=== PATIENT | female | born 1955 | race Caucasian/White ===

== ENCOUNTER 2019-11-07 10:09 | Inpatient (IN) | payer MEDICARE, OTHER ==
[2019-11-07] MEDS ORDERED: BIVALIRUDIN BOLUS 250 MG/50 ML IV ONE (11:16)
[2019-11-07] MEDS ORDERED: PRASUGREL 10 MG TAB ONE ×2 (11:17)
[2019-11-07] MEDS ORDERED: NITROGLYCERIN 1000MCG/10ML SYRINGE INTRACORON ONE (11:18)
[2019-11-07] MEDS ORDERED: BIVALIRUDIN 250 MG in SODIUM CHLORIDE 0.9% 50 ML IV ONE (11:19)
[2019-11-07] MEDS ORDERED: PRASUGREL 10 MG TAB PO ONE (11:21)
[2019-11-07] MEDS ORDERED: IV FLUID CONTINUATION 200 ML IV ONE (11:22)
[2019-11-07] MEDS ORDERED: IOPAMIDOL-370 125ML BTL INJ ONE (11:29)
[2019-11-07] MEDS ORDERED: NITROGLYCERIN SL TABS 0.4 MG TAB SUBLINGUAL PRN (11:35)
[2019-11-07] MEDS ORDERED: ATROPINE SULFATE 0.1 MG/ML 10ML SYRINGE IV PRN (11:35)
[2019-11-07] MEDS ORDERED: RX INFO: IV CONTRAST WAS GIVEN 1 EACH MISC MISCELLANE PRN (11:35)
[2019-11-07] MEDS ORDERED: MAG HYDROX/AL HYDROX/SIMETH 30 ML CUP PO PRN (11:35)
[2019-11-07] MEDS ORDERED: SODIUM CHLORIDE 0.9% 1,000 ML IV SCH (11:45)
--- NOTE | 2019-11-07 11:52 | PTCA ---
PERCUTANEOUSTRANS CORORONARY ANGIOGRAPHY DATE OF SERVICE: 11/07/2019 PERFORMING PHYSICIAN: Daniel Alex MD. PROCEDURE PERFORMED: Successful stenting of the mid left anterior descending artery using 2.5 x 23 mm Xience FUAD with an excellent angiographic results. INDICATION: This is a 64-year-old female patient with COPD who was admitted initially to [facility] with increasing in the shortness of breath and was diagnosed with COPD exacerbation, but she was ruled in for acute lhr-[id number]-ruasosshk myocardial infarction. She underwent an echocardiogram which showed wall motion abnormalities in the LAD distribution. Also the EKG showed ST changes in the anteroseptal leads. APPROACH: Right common femoral artery. COMPLICATION: None. LEVEL OF SEDATION: Moderate with sedation length of 20 minutes. PROCEDURE DESCRIPTION: Please refer to diagnostic heart catheterization was performed at [facility]. Anticoagulation was initiated using Angiomax with bolus and drip. The left main was engaged using XB3 LAD guide. I did wire the LAD using a whisper wire. I did direct stenting of the lesion using 2.5 x 23 mm Xience FUAD where the stent was positioned under fluoroscopy guidance and deployed under 12 atmospheres for 20 seconds. The following angiogram showed good angiographic results and the procedure was completed without any complication. POSTPROCEDURE MANAGEMENT: 1. Dual anti-platelet therapy. 2. Risk factor modifications. 3. Follow up with the patient. MMODL / IJN: [id number] /
[2019-11-07] MEDS: methylPREDNISolone SOD SUCCI 125 MG/2 ML VIAL IV SCH ×2 (12:00→18:30)
[2019-11-07] MEDS: IPRATROPIUM-ALBUTEROL 3 ML NEB INHALATION SCH ×4 (12:10→23:23)
[2019-11-07] MEDS ORDERED: FUROSEMIDE 10 MG/ML 4 ML VIAL IV STA (12:25)
[2019-11-07] MEDS: MORPHINE SULFATE 2 MG/ML SYRINGE IVP PRN (12:25)
[2019-11-07] MEDS ORDERED: hydrALAZINE HCL 20 MG/ML 1 ML VIAL IVP STA (12:25)
[2019-11-07] MEDS ORDERED: hydrALAZINE HCL 20 MG/ML 1 ML VIAL IVP PRN (12:58)
[2019-11-07] MEDS ORDERED: IPRATROPIUM-ALBUTEROL 3 ML NEB INHALATION PRN (12:59)
[2019-11-07] MEDS: ALPRAZolam 0.25 MG TAB PO PRN (18:29)
[2019-11-07] MEDS ORDERED: ZOLPIDEM 5 MG TAB PO PRN (21:00)
[2019-11-07] MEDS: METOPROLOL TARTRATE 25 MG TAB PO SCH (21:26)
[2019-11-07] MEDS: ATORVASTATIN 80 MG TAB PO SCH (21:26)
[2019-11-08] MEDS: methylPREDNISolone SOD SUCCI 125 MG/2 ML VIAL IV SCH ×5 (00:26→23:55)
[2019-11-08] MEDS: ALPRAZolam 0.25 MG TAB PO PRN ×4 (00:35→23:55)
[2019-11-08] MEDS: IPRATROPIUM-ALBUTEROL 3 ML NEB INHALATION SCH ×6 (05:17→23:27)
[2019-11-08 06:13] LABS: Glucose,Whole Blood 134 mg/dL (75-99)
[2019-11-08 06:28] LABS: Basophils % (A) 0 %; Eosinophils % (A) 0 %; HCT 46.2 % (34.0-46.0); HGB 14.9 gm/dL (11.4-16.0); Lymphocytes # (A) 0.8 k/uL (1.0-4.8); Lymphocytes % (A) 7 %; MCH 32.7 pg (25.0-35.0); MCHC 32.2 g/dL (31.0-37.0); MCV 101.6 fL (80.0-100.0); Mean Platelet Volume 6.9; Monocytes # (A) 0.4 k/uL (0-1.0); Monocytes % (A) 4 %; Neutrophils # (A) 9.2 k/uL (1.3-7.7); Neutrophils % (A) 88 %; Platelet Count 322 k/uL (150-450); RBC 4.55 m/uL (3.80-5.40); RDW 12.3 % (11.5-15.5); WBC 10.4 k/uL (3.8-10.6)
[2019-11-08 06:42] LABS: African American GFR (CKD) >90 (>60 ml/min/1.73 sqM); Anion Gap 7 mmol/L; Blood Urea Nitrogen 26 mg/dL (7-17); Calcium 9.3 mg/dL (8.4-10.2); Carbon Dioxide 24 mmol/L (22-30); Chloride 107 mmol/L (98-107); Glucose 128 mg/dL (74-99); Non-African American GFR(CKD) >90 (>60 ml/min/1.73 sqM); Potassium 4.3 mmol/L (3.5-5.1); Sodium 138 mmol/L (137-145)
[2019-11-08] MEDS: PANTOPRAZOLE 40 MG TABLET PO SCH (07:02)
[2019-11-08] MEDS: LOSARTAN 50 MG TAB PO SCH (08:17)
[2019-11-08] MEDS: NICOTINE 21MG/24HR PATCH TRANSDERM SCH (08:18)
[2019-11-08] MEDS: METOPROLOL TARTRATE 25 MG TAB PO SCH (08:18)
[2019-11-08] MEDS: PRASUGREL 10 MG TAB PO SCH (08:18)
[2019-11-08] MEDS ORDERED: ASPIRIN 325 MG TAB PO SCH (09:00)
[2019-11-08 11:31] LABS: Glucose,Whole Blood 129 mg/dL (75-99)
[2019-11-08] MEDS: MORPHINE SULFATE 2 MG/ML SYRINGE IVP PRN (15:42)
[2019-11-08 16:52] LABS: Glucose,Whole Blood 127 mg/dL (75-99)
[2019-11-08] MEDS: METOPROLOL TARTRATE 50 MG TAB PO SCH (20:42)
[2019-11-08] MEDS: ATORVASTATIN 80 MG TAB PO SCH (20:42)
[2019-11-08 20:44] LABS: Glucose,Whole Blood 161 mg/dL (75-99)
[2019-11-08] MEDS ORDERED: DOXYCYCLINE 100 MG CAP PO SCH (22:15)
--- NOTE | 2019-11-08 22:20 | P.HPIM ---
History of Present Illness H&P Date: 11/08/19 Chief Complaint: Chest pain Patient is 64-year-old female with a known history of COPD was initially transferred from [facility] to [facility] due to worsening shortness of breath /dyspnea. Patient was in the MICU due to respiratory distress and requiring 4 L of oxygen where nasal cannula. Chest x- ray done at [facility] showed minimal groundglass opacities. Repeat chest x-ray at [facility] showed COPD. Patient was tested negative for COVID 19 on 11/01/2019. Patient was treated with antibiotics in the form of azithromycin and ceftriaxone as well as IV steroids for acute COPD exacerbation. Patient was also found to have elevated troponin's and EKG suggestive of ischemic changes. 2-D echo Cardizem showed ejection fraction 45% with septal, apical hypokinesis. Patient underwent cardiac catheterization showed severe disease in the mid LAD with long tubular lesion. Patient was transferred to [facility] where she underwent PCI and successful stenting of mid LAD. Patient is currently lying in the bed comfortably. No complaints of chest pain. Still having shortness of breath. No fever no chills. Patient is being continued on IV steroids, breathing treatments and antibiotics. Continued with dual antiplatelet therapy and statins and metoprolol. Review of Systems Constitutional: Patient denies any fever or chills . No generalized weakness or weight loss. Abdomen: Patient denied nausea vomiting and diarrhea and abdominal pain. Cardiovascular: Patient denies any chest pain or short of breath no palpitations. Respiratory: Patient does have cough without sputum production and positive shortness of breath Neurologic: Patient denied any numbness or tingling headache. Musculoskeletal: Patient denies any complaints of joint swelling or deformity. Skin: Negative Psychiatric: Negative Endocrine: No heat or cold intolerance. No recent weight gain. Genitourinary: No dysuria or hematuria. All other 14 point ROS negative except the above Past Medical History Past Medical History: COPD History of Any Multi-Drug Resistant Organisms: None Reported Past Surgical History: No Surgical Hx Reported Past Anesthesia/Blood Transfusion Reactions: No Reported Reaction Past Psychological History: Anxiety, Depression Smoking Status: Former smoker Past Alcohol Use History: None Reported Past Drug Use History: None Reported - Past Family History Father Family Medical History: Cancer Mother Family Medical History: Dementia Medications and Allergies Home Medications Medication Instructions Recorded Confirmed Type Albuterol Sulfate [Proair Hfa] 2 puff INHALATION RT-Q6H PRN 11/07/19 11/07/19 History Aspirin EC [Ecotrin Low Dose] 81 mg PO DAILY 11/07/19 11/07/19 History Fluticasone Propion/Salmeterol 1 puff INHALATION RT-DAILY 11/07/19 11/07/19 History [Fluticasone-Salmeterol 500-50] Fluticasone/Salmeterol [Advair 1 puff INHALATION RT-BID 11/07/19 11/07/19 History 500-50 Diskus] Ipratropium-Albuterol Nebulize 3 ml INHALATION RT-QID PRN 11/07/19 11/07/19 History [Duoneb 0.5 mg-3 mg/3 ml Soln] LORazepam [Ativan] 0.5 mg PO TID PRN 11/07/19 11/07/19 History busPIRone HCL 10 mg PO BID 11/07/19 11/07/19 History hydrOXYzine HCL 10 mg PO BID 11/07/19 11/07/19 History Allergies Allergy/AdvReac Type Severity Reaction Status Date / Time No Known Drug Allergies Allergy Unknown Verified 11/07/19 16:45 Physical Exam Vitals: Vital Signs Temp Pulse Pulse Resp BP BP Pulse Ox 11/08/19 08:00 97.6 F 118 H 25 H 159/88 91 L 11/08/19 07:42 96 11/08/19 07:28 92 11/08/19 05:27 88 11/08/19 05:18 104 H 11/08/19 04:00 97.6 F 102 H 16 179/92 97 11/08/19 03:00 97.8 F 102 H 16 126/62 97 11/08/19 00:08 98 11/08/19 00:00 97.8 F 85 16 138/83 97 11/07/19 23:37 76 11/07/19 23:31 100 11/07/19 23:24 72 11/07/19 20:11 100 11/07/19 20:06 104 H 11/07/19 20:00 97.7 F 106 H 20 115/68 96 11/07/19 19:53 101 H 11/07/19 17:30 102 H 127/90 11/07/19 17:02 101 H 22 94/65 11/07/19 16:33 110 H 11/07/19 16:30 110 H 29 H 119/69 11/07/19 16:15 104 H 104 H 120/58 11/07/19 15:47 97 18 133/65 98 11/07/19 15:37 95 18 137/69 98 11/07/19 15:32 91 18 140/71 98 11/07/19 15:27 89 18 122/63 98 11/07/19 15:25 98.1 F 101 H 29 H 94/65 97 11/07/19 15:20 88 18 125/69 98 11/07/19 14:20 98 18 125/67 98 11/07/19 13:20 96 18 124/75 98 11/07/19 13:15 98 18 135/78 97 11/07/19 13:05 99 20 159/76 97 11/07/19 12:55 103 H 20 175/79 97 11/07/19 12:50 97 20 181/91 98 11/07/19 12:23 107 H 11/07/19 12:20 111 H 24 227/122 98 11/07/19 12:10 109 H 11/07/19 12:05 108 H 28 H 197/127 11/07/19 11:50 113 H 28 H 191/128 Intake and Output 11/07/19 11/08/19 11/08/19 22:59 06:59 14:59 Intake Total 225 Output Total 1999 Balance 225 -1999 Intake: Intake, IV Titration 225 Amount Sodium Chloride 0.9% 1, 225 000 ml @ 75 mls/hr IV . [id number] [facility] Rx#:[id number] Output: Urine 1999 Other: Voiding Method Indwelling Catheter Indwelling Catheter Indwelling Catheter Weight 59.8 kg 59.8 kg PHYSICAL EXAMINATION: Patient is lying in the bed comfortably, no acute distress, awake alert and oriented.. HEENT: Normocephalic. Neck is supple. Pupils reactive. Nostrils clear. Oral cavity is moist. Ears reveal no drainage. Neck reveals no JVD, carotid bruits, or thyromegaly. CHEST EXAMINATION: Trachea is central. Symmetrical expansion. Bibasilar diminished air entry and expiratory wheezing present. CARDIAC: Normal S1, S2 with no gallops. No murmurs ABDOMEN: Soft. Bowel sounds normal. No organomegaly. No abdominal bruits. Extremities: reveal no edema. No clubbing or cyanosis Neurologically awake, alert, oriented x3 with well-coordinated movements. No focal deficits noted Skin: No rash or skin lesions. Psychiatric: Coperative. Nonsuicidal. anxious. Musculoskeletal: No joint swelling or deformity. Normal range of motion. Results CBC & Chem 7: 11/08/19 05:27 11/08/19 05:27 Labs: Abnormal Lab Results - Last 24 Hours (Table) 11/08/19 11/08/19 11/08/19 Range/Units 05:27 05:27 06:12 Hct 46.2 H (34.0-46.0) % MCV 101.6 H (80.0-100.0) fL Neutrophils # 9.2 H (1.3-7.7) k/uL Lymphocytes # 0.8 L (1.0-4.8) k/uL BUN 26 H (7-17) mg/dL Creatinine 0.49 L (0.52-1.04) mg/dL Glucose 128 H (74-99) mg/dL POC Glucose (mg/dL) 134 H (75-99) mg/dL Thrombosis Risk Factor Assmnt - DVT/VTE Prophylaxis DVT/VTE Prophylaxis: Pharmacologic Prophylaxis ordered - Choose All That Apply Each Factor Represents 1 point: Abnormal pulmonary function (COPD) Each Risk Factor Represents 2 Points: Age 61-74 years Thrombosis Risk Factor Assessment Total Risk Factor Score: 3 Thrombosis Risk Factor Assessment Level: Moderate Risk Assessment and Plan Assessment: Acute non-ST elevated IA status post cardiac catheterization and stent placement to mid LAD Acute COPD exacerbation Suspected COVID 19 viral infection. Test was negative. Previous history of smoking Acute hypoxic respiratory failure requiring BiPAP. Currently on oxygen with another cannula. Uncontrolled Hypertension Anxiety/depression History of breast cancer status post bilateral ostectomy. DVT prophylaxis with heparin subcu Plan: Patient will be continued on telemetry monitoring. Continue with dual antiplatelet therapy, statins and beta blockers. Continue with IV steroids and breathing treatments and added antibiotics in the form of azithromycin. Cardiology is on board. Further recommendations based on the clinical course. Time with Patient: Greater than 30
[2019-11-08] MEDS: AZITHROMYCIN 500 MG TAB PO SCH (23:55)
[2019-11-09] MEDS ORDERED: methylPREDNISolone SOD SUCCI 125 MG/2 ML VIAL IV SCH
[2019-11-09] MEDS: HEPARIN SODIUM,PORCINE 5,000 UNIT/ML 1 ML VIAL SQ SCH ×4 (00:03→23:07)
[2019-11-09] MEDS: IPRATROPIUM-ALBUTEROL 3 ML NEB INHALATION SCH (04:48)
[2019-11-09 06:15] LABS: Glucose,Whole Blood 167 mg/dL (75-99)
[2019-11-09] MEDS: methylPREDNISolone SOD SUCCI 125 MG/2 ML VIAL IV SCH ×4 (06:29→23:07)
[2019-11-09] MEDS: PANTOPRAZOLE 40 MG TABLET PO SCH (06:30)
[2019-11-09 06:42] LABS: Basophils % (A) 0 %; Eosinophils # (A) 0.1 k/uL (0-0.7); Eosinophils % (A) 1 %; HCT 41.9 % (34.0-46.0); HGB 13.6 gm/dL (11.4-16.0); Lymphocytes # (A) 0.9 k/uL (1.0-4.8); Lymphocytes % (A) 5 %; MCH 32.8 pg (25.0-35.0); MCHC 32.5 g/dL (31.0-37.0); MCV 100.9 fL (80.0-100.0); Monocytes # (A) 0.8 k/uL (0-1.0); Monocytes % (A) 5 %; Neutrophils % (A) 88 %; Platelet Count 343 k/uL (150-450); RBC 4.15 m/uL (3.80-5.40); WBC 15.8 k/uL (3.8-10.6)
[2019-11-09 07:05] LABS: African American GFR (CKD) >90 (>60 ml/min/1.73 sqM); Anion Gap 4 mmol/L; Blood Urea Nitrogen 31 mg/dL (7-17); Calcium 9.4 mg/dL (8.4-10.2); Carbon Dioxide 28 mmol/L (22-30); Chloride 103 mmol/L (98-107); Glucose 141 mg/dL (74-99); Non-African American GFR(CKD) >90 (>60 ml/min/1.73 sqM); Potassium 4.6 mmol/L (3.5-5.1); Sodium 135 mmol/L (137-145)
--- NOTE | 2019-11-09 07:32 | XR ---
EXAMINATION TYPE: XR chest 1V DATE OF EXAM: 11/09/2019 COMPARISON: NONE HISTORY: Dyspnea TECHNIQUE: Single frontal view of the chest is obtained. FINDINGS: There is pulmonary hyperinflation and biapical lucency with tapering of pulmonary vasculat ure on the basis of COPD. Surgical axillary clips are seen bilaterally. Symmetric rounded densities a t the lung bases may relate to nipple shadows, however with axillary clips mastectomy is possible. At tention on follow-up exams. No focal consolidation, pleural effusion or pneumothorax. Cardiomediastin al silhouette is nonenlarged. No acute osseous process. IMPRESSION: 1. Extensive emphysematous changes of the lungs. No focal consolidation. 2. Rounded densities at the lung bases may represent nipple shadows however this patient has had mast ectomy as there are axillary clips bilaterally CT thorax with be recommended to evaluate for pulmonar y nodule. Otherwise chest x-ray with nipple markers is recommended on the follow-up.
[2019-11-09] MEDS: ALBUTEROL HFA INHALER INHALATION SCH ×4 (08:04→19:34)
[2019-11-09] MEDS: TIOTROPIUM 18 MCG/PUFF INHALER INHALATION SCH (08:05)
[2019-11-09] MEDS: METOPROLOL TARTRATE 50 MG TAB PO SCH ×2 (08:44→20:19)
[2019-11-09] MEDS: ALPRAZolam 0.25 MG TAB PO PRN ×3 (08:44→20:19)
[2019-11-09] MEDS: LOSARTAN 50 MG TAB PO SCH (08:44)
[2019-11-09] MEDS: ASPIRIN 81 MG PO SCH (08:44)
[2019-11-09] MEDS: PRASUGREL 10 MG TAB PO SCH (08:44)
[2019-11-09] MEDS: NICOTINE 21MG/24HR PATCH TRANSDERM SCH (08:45)
--- NOTE | 2019-11-09 11:08 | CDI ---
Documentation Clarification Form Date: 11/09/2019 11:00:39 AM From: Rosina RobleroFloresBRANDY rosa, CCDS Admit Date: 11/07/2019 10:52:00 AM Patient Name: Brooklyn Salgado Visit Number: [id number] Discharge Date: ATTENTION: The Clinical Documentation Specialists (CDI) and [facility] Coding Staff appreciate your assistance in clarifying documentation. Please respond to the clarification below the line at the bottom and electronically sign. The CDI & [facility] Coding staff will review the response and follow-up if needed. Please note: Queries are made part of the Legal Health Record. If you have any questions, please contact the author of this message via ITS. Dr. Adonay Marcelo: The patient presented on 11/06 via transfer from [facility] for a PTCA with successful stent to the mid LAD after a heart catheterization & diagnosed with NSTEMI. Per the History & Physical on 11/07, also diagnosed with "uncontrolled hypertension" nos. History/Risk Factors: COPD, Former smoker, Bilateral mastectomy for breast Cancer. Clinical Indicators: Presented initially to [facility] with SOB, diagnosed with acute exacerbation of COPD, transferred to [facility], tested negative for COVID-19, diagnosed with CAD via heart catheterization, transferred to [facility] on 11/06 for intervention. BP on 11/06: 191/128, 197/127, 227/122, 181/91, 175/79, 122/63. On 11/08: 158/85, 169/81 Treatment: To r and d lab technician on admission 11/06 for PCI of LAD. IV fluid rate 75, INH Albuterol, IV Solumedrol, IV Lasix, IV Apresoline, IV Morphine. In your professional opinion, can you please clarify the type of hypertension: Hypertensive Emergency Hypertensive Urgency Other type of Hypertension Other, please specify Unable to determine (Last Revision: October 2017) Hypertensive Emergency MTDD
[2019-11-09 11:42] LABS: Glucose,Whole Blood 131 mg/dL (75-99)
[2019-11-09] MEDS: INSULIN ASPART (NovoLOG) 100 UNIT/ML VIAL SQ SCH ×3 (12:07→20:33)
--- NOTE | 2019-11-09 12:44 | P.PN ---
Subjective Progress Note Date: 11/08/19 This is a dictation for the date of service 11/08/2019 This is a 64-year-old female with history of COPD who initially was transferred from [facility] to [facility] because of symptoms of progressively worsening shortness of breath, she ruled in for non-Q-wave myocardial infarction, underwent a cardiac catheterization which revealed severe disease in the mid LAD and hence the patient was transferred here where she underwent angioplasty and stenting of that vessel. Patient was seen and examined this morning, hemodynamically stable but quite short of breath and quite wheezy. Blood pressure 160/80 with a heart rate of 118. 91% on 3 L of oxygen. White blood cell count 10.4, hemoglobin 14.9, platelet count 322. Sodium 138, potassium 4.3, BUN 26, creatinine 0.4. Objective - Vital Signs Vital signs: Vital Signs Temp 97.8 F 11/09/19 08:40 Pulse 72 11/09/19 12:00 Resp 18 11/09/19 12:00 BP 140/93 11/09/19 12:00 Pulse Ox 94 L 11/09/19 12:00 Intake & Output 11/08/19 11/09/19 11/09/19 18:59 06:59 18:59 Intake Total 480 360 240 Output Total 350 820 200 Balance 130 -460 40 Weight 59.8 kg 44.5 kg Intake: Oral 480 360 240 Output: Urine 350 400 200 Post Void Residual 420 Other: Voiding Method Indwelling Catheter Bedside Commode Bedside Commode # Voids 1 # Bowel Movements 1 - Exam PHYSICAL EXAMINATION: GENERAL: 64-year-old female in no acute distress at the time of my examination HEENT: Head is atraumatic, normocephalic. Pupils equal, round. Sclera anicteric. Conjunctiva are clear. Mucous membranes of the mouth are moist. Neck is supple. There is no elevated jugular venous pressure. No carotid bruit is heard. HEART EXAMINATION: Heart S1, S2 normal. No murmur or gallop heard. CHEST EXAMINATION: Lungs reveal decrease in air exchange with wheezing throughout ABDOMEN: Soft, nontender. Bowel sounds are heard. No organomegaly noted. EXTREMITIES: 2+ peripheral pulses with no evidence of peripheral edema and no calf tenderness noted. Right groin is soft, no evidence of any hematoma. NEUROLOGIC patient is awake, alert and oriented X3 . - Labs CBC & Chem 7: 11/09/19 06:02 11/09/19 06:02 Labs: Abnormal Lab Results - Last 24 Hours (Table) 11/08/19 11/08/19 11/09/19 Range/Units 16:50 20:43 06:02 WBC 15.8 H (3.8-10.6) k/uL MCV 100.9 H (80.0-100.0) fL Neutrophils # 14.0 H (1.3-7.7) k/uL Lymphocytes # 0.9 L (1.0-4.8) k/uL Sodium (137-145) mmol/L BUN (7-17) mg/dL Glucose (74-99) mg/dL POC Glucose (mg/dL) 127 H 161 H (75-99) mg/dL 11/09/19 11/09/19 11/09/19 Range/Units 06:02 06:13 11:40 WBC (3.8-10.6) k/uL MCV (80.0-100.0) fL Neutrophils # (1.3-7.7) k/uL Lymphocytes # (1.0-4.8) k/uL Sodium 135 L (137-145) mmol/L BUN 31 H (7-17) mg/dL Glucose 141 H (74-99) mg/dL POC Glucose (mg/dL) 167 H 131 H (75-99) mg/dL Assessment and Plan Plan: Assessment and plan #1 non-ST elevation myocardial infarction, status post angioplasty and stenting of the LAD #2 moderate to severe COPD #3 prior history of smoking #4 acute respiratory failure requiring BiPAP #5 uncontrolled hypertension #6 history of breast cancer #7 hyperlipidemia Plan We will obtain an echocardiogram with Doppler study, continue dual antiplatelet therapy along with the patient's other medications. From our perspective she may be able to be discharged once she is cleared from a pulmonary perspective. DNP note has been reviewed, I agree with a documented findings and plan of care. Patient was seen and examined.
--- NOTE | 2019-11-09 12:45 | P.PN ---
Subjective Progress Note Date: 11/09/19 This is a dictation for the date of service 11/08/2019 This is a 64-year-old female with history of COPD who initially was transferred from [facility] to [facility] because of symptoms of progressively worsening shortness of breath, she ruled in for non-Q-wave myocardial infarction, underwent a cardiac catheterization which revealed severe disease in the mid LAD and hence the patient was transferred here where she underwent angioplasty and stenting of that vessel. Patient was seen and examined this morning, hemodynamically stable but quite short of breath and quite wheezy. Blood pressure 160/80 with a heart rate of 118. 91% on 3 L of oxygen. White blood cell count 10.4, hemoglobin 14.9, platelet count 322. Sodium 138, potassium 4.3, BUN 26, creatinine 0.4. 11/09/19 Patient seen and examined this morning, breathing overall is significantly improved and she is wheezing much last. She denies any chest discomfort and hemodynamically he is stable. Echo remains pending. Objective - Vital Signs Vital signs: Vital Signs Temp 97.8 F 11/09/19 08:40 Pulse 72 11/09/19 12:00 Resp 18 11/09/19 12:00 BP 140/93 11/09/19 12:00 Pulse Ox 94 L 11/09/19 12:00 Intake & Output 11/08/19 11/09/19 11/09/19 18:59 06:59 18:59 Intake Total 480 360 240 Output Total 350 820 200 Balance 130 -460 40 Weight 59.8 kg 44.5 kg Intake: Oral 480 360 240 Output: Urine 350 400 200 Post Void Residual 420 Other: Voiding Method Indwelling Catheter Bedside Commode Bedside Commode # Voids 1 # Bowel Movements 1 - Exam PHYSICAL EXAMINATION: GENERAL: 64-year-old female in no acute distress at the time of my examination HEENT: Head is atraumatic, normocephalic. Pupils equal, round. Sclera anicter ic. Conjunctiva are clear. Mucous membranes of the mouth are moist. Neck is supple. There is no elevated jugular venous pressure. No carotid bruit is heard. HEART EXAMINATION: Heart S1, S2 normal. No murmur or gallop heard. CHEST EXAMINATION: Lungs improvement in air exchange with less wheezing ABDOMEN: Soft, nontender. Bowel sounds are heard. No organomegaly noted. EXTREMITIES: 2+ peripheral pulses with no evidence of peripheral edema and no calf tenderness noted. Right groin is soft, no evidence of any hematoma. NEUROLOGIC patient is awake, alert and oriented X3 . - Labs CBC & Chem 7: 11/09/19 06:02 11/09/19 06:02 Labs: Abnormal Lab Results - Last 24 Hours (Table) 11/08/19 11/08/19 11/09/19 Range/Units 16:50 20:43 06:02 WBC 15.8 H (3.8-10.6) k/uL MCV 100.9 H (80.0-100.0) fL Neutrophils # 14.0 H (1.3-7.7) k/uL Lymphocytes # 0.9 L (1.0-4.8) k/uL Sodium (137-145) mmol/L BUN (7-17) mg/dL Glucose (74-99) mg/dL POC Glucose (mg/dL) 127 H 161 H (75-99) mg/dL 11/09/19 11/09/19 11/09/19 Range/Units 06:02 06:13 11:40 WBC (3.8-10.6) k/uL MCV (80.0-100.0) fL Neutrophils # (1.3-7.7) k/uL Lymphocytes # (1.0-4.8) k/uL Sodium 135 L (137-145) mmol/L BUN 31 H (7-17) mg/dL Glucose 141 H (74-99) mg/dL POC Glucose (mg/dL) 167 H 131 H (75-99) mg/dL Assessment and Plan Plan: Assessment and plan #1 non-ST elevation myocardial infarction, status post angioplasty and stenting of the LAD #2 moderate to severe COPD #3 prior history of smoking #4 acute respiratory failure requiring BiPAP #5 uncontrolled hypertension #6 history of breast cancer #7 hyperlipidemia Plan We will review the echocardiogram with Doppler study, continue dual antiplatelet therapy along with the patient's other medications. From our perspective she may be able to be discharged once she is cleared from a pulmonary perspective. DNP note has been reviewed, I agree with a documented findings and plan of care. Patient was seen and examined.
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
[2019-11-09 16:47] LABS: Glucose,Whole Blood 129 mg/dL (75-99)
[2019-11-09] MEDS: SYMBICORT 160-4.5 MCG INHALER INHALATION SCH (19:35)
[2019-11-09] MEDS: ATORVASTATIN 80 MG TAB PO SCH (20:19)
[2019-11-09] MEDS: AZITHROMYCIN 500 MG TAB PO SCH (20:19)
[2019-11-09 20:28] LABS: Glucose,Whole Blood 147 mg/dL (75-99)
[2019-11-10] MEDS: ALBUTEROL HFA INHALER INHALATION SCH ×6 (00:31→19:23)
[2019-11-10] MEDS: ALPRAZolam 0.25 MG TAB PO PRN ×3 (05:58→20:29)
[2019-11-10] MEDS: methylPREDNISolone SOD SUCCI 125 MG/2 ML VIAL IV SCH ×3 (05:58→17:19)
[2019-11-10] MEDS: PANTOPRAZOLE 40 MG TABLET PO SCH (05:59)
[2019-11-10 06:33] LABS: Glucose,Whole Blood 127 mg/dL (75-99)
[2019-11-10] MEDS: INSULIN ASPART (NovoLOG) 100 UNIT/ML VIAL SQ SCH ×4 (06:35→20:29)
[2019-11-10] MEDS: SYMBICORT 160-4.5 MCG INHALER INHALATION SCH ×2 (08:03→19:23)
[2019-11-10] MEDS: TIOTROPIUM 18 MCG/PUFF INHALER INHALATION SCH (08:03)
[2019-11-10] MEDS: HEPARIN SODIUM,PORCINE 5,000 UNIT/ML 1 ML VIAL SQ SCH ×2 (08:16→17:20)
[2019-11-10] MEDS: PRASUGREL 10 MG TAB PO SCH (08:16)
[2019-11-10] MEDS: METOPROLOL TARTRATE 50 MG TAB PO SCH ×2 (08:16→20:29)
[2019-11-10] MEDS: LOSARTAN 50 MG TAB PO SCH (08:16)
[2019-11-10] MEDS: ASPIRIN 81 MG PO SCH (08:16)
[2019-11-10] MEDS: NICOTINE 21MG/24HR PATCH TRANSDERM SCH (08:16)
--- NOTE | 2019-11-10 10:21 | PN ---
PROGRESS NOTE Mrs. Salgado is a 64-year-old female with history of chronic obstructive lung disease, who presented with non ST-segment elevation myocardial infarction, underwent stenting of her LAD. She is feeling better today. Her breathing is better. She denies any dizziness or palpitation. She was evaluated by Dr. Adamson yesterday. She continues to be on aspirin once a day, Lipitor 80 mg daily, losartan 50 mg daily, metoprolol tartrate 50 mg twice a day, nicotine patch, and Effient 10 mg daily. PHYSICAL EXAMINATION: Blood pressure 111/70 with a heart rate in 90s. LUNGS: With decreased air exchange, no wheezes. HEART: Regular rate and rhythm, S1, S2. No S3. No rub. ABDOMEN: Soft, nontender. EXTREMITIES: No edema. IMPRESSION: 1. Status post non ST-segment elevation myocardial infarction with stenting of the LAD. 2. Exacerbation of chronic obstructive pulmonary disease. 3. Prior history of smoking. 4. Hypertension. 5. Hyperlipidemia. RECOMMENDATION: Patient is stable from the cardiac standpoint. I will expect she should be able to be discharged home soon and follow up as an outpatient with Dr. Alex in one week. MMODL / IJN: [id number] /
[2019-11-10 11:51] LABS: Glucose,Whole Blood 114 mg/dL (75-99)
--- NOTE | 2019-11-10 11:54 | ECHOF ---
Referral Reason:nstemi MEASUREMENTS -------- HEIGHT: 165.1 cm WEIGHT: 44.5 kg BP: RVIDd: 2.8 cm (< 3.3) IVSd: 0.8 cm (0.6 - 1.1) LVIDd: 2.9 cm (3.9 - 5.3) LVPWd: 1.1 cm (0.6 - 1.1) IVSs: 1.0 cm LVIDs: 2.2 cm LVPWs: 1.0 cm MV E Rocco: 0.54 m/s MV DecT: 165 ms MV A Rocco: 0.75 m/s MV E/A Ratio: 0.71 AR PHT: 314 ms RAP: 5.00 mmHg RVSP: 16.77 mmHg FINDINGS -------- Sinus rhythm. This was a technically difficult study with suboptimal views. The left ventricular size is normal. Left ventricular wall thickness is normal. Overall left vent ricular systolic function is low-normal with, an EF between 50 - 55 %. The right ventricle is normal in size. The left atrial size is normal. The right atrial size is normal. Lumason used The aortic valve was not well visualized. The aortic valve is trileaflet and appears structurally n ormal. Trace amount of aortic regurgitation. The mitral valve was not well visualized. There is trace mitral regurgitation. The tricuspid valve was not well visualized. Trace tricuspid regurgitation present. Right ventric ular systolic pressure is normal at < 35 mmHg. The pulmonic valve was not well visualized. The aortic root size is normal. IVC Not well visulized. There is no pericardial effusion. CONCLUSIONS -------- 1. Sinus rhythm. 2. This was a technically difficult study with suboptimal views. 3. The left ventricular size is normal. 4. Left ventricular wall thickness is normal. 5. Overall left ventricular systolic function is low-normal with, an EF between 50 - 55 %. 6. The right ventricle is normal in size. 7. The left atrial size is normal. 8. The right atrial size is normal. 9. Lumason used 10. The aortic valve was not well visualized. 11. The aortic valve is trileaflet and appears structurally normal. 12. Trace amount of aortic regurgitation. 13. The mitral valve was not well visualized. 14. There is trace mitral regurgitation. 15. The tricuspid valve was not well visualized. 16. Trace tricuspid regurgitation present. 17. Right ventricular systolic pressure is normal at < 35 mmHg. 18. The pulmonic valve was not well visualized. 19. The aortic root size is normal. 20. IVC Not well visulized. 21. There is no pericardial effusion. PHARMACY BILLING ADJUDICATOR: Earlene Meredith RDCS
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
[2019-11-10] MEDS: TAMSULOSIN 0.4 MG CAP.ER.24H PO SCH (14:00)
--- NOTE | 2019-11-10 14:22 | P.PN ---
Subjective Progress Note Date: 11/10/19 Principal diagnosis: Patient is 64-year-old female with a known history of COPD was initially transferred from [facility] to [facility] due to worsening shortness of breath /dyspnea. Patient was in the MICU due to respiratory distress and requiring 4 L of oxygen where nasal cannula. Chest x- ray done at [facility] showed minimal groundglass opacities. Repeat chest x-ray at [facility] showed COPD. Patient was tested negative for COVID 19 on 11/01/2019. Patient was treated with antibiotics in the form of azithromycin and ceftriaxone as well as IV steroids for acute COPD exacerbation. Patient was also found to have elevated troponin's and EKG suggestive of ischemic changes. 2-D echo Cardizem showed ejection fraction 45% with septal, apical hypokinesis. Patient underwent cardiac catheterization showed severe disease in the mid LAD with long tubular lesion. Patient was transferred to [facility] where she underwent PCI and successful stenting of mid LAD. Patient is currently lying in the bed comfortably. No complaints of chest pain. Still having shortness of breath. No fever no chills. Patient is being continued on IV steroids, breathing treatments and antibiotics. Continued with dual antiplatelet therapy and statins and metoprolol. 11/10/2019 Patient is seen and evaluated and follow-up in currently on 3 L of oxygen via nasal cannula. She states her breathing has improved and normally wears 3 L at home. Pulmonary following. Patient was wearing the BiPAP last night. Early no reports of chest pain, worsening shortness of breath, or palpitations. Patient is afebrile. No reports of nausea or vomiting and patient is tolerating diet. Attempts to remove the Hartman catheter done yesterday and patient was retaining and the Hartman catheter was replaced. Patient will be initiated on Flomax and nursing staff instructed to remove the Hartman and monitor for retention. If this continues urology consult will be placed. Patient continues on oral Zithromax along with IV ceftriaxone and will continue at this time. Patient remains on IV steroids and wheezing has slightly improved. Cardiology recommending outpatient follow-up once discharged. Objective - Vital Signs Vital signs: Vital Signs Temp 97.5 F L 11/10/19 08:00 Pulse 94 11/10/19 08:00 Resp 18 11/10/19 08:00 BP 111/72 11/10/19 08:00 Pulse Ox 93 L 11/10/19 08:00 Intake & Output 11/09/19 11/10/19 11/10/19 18:59 06:59 18:59 Intake Total 530 190 Output Total 200 425 250 Balance 330 -235 -250 Weight 43 kg Intake: IV 10 Invasive Line 3 10 Intake, IV Titration 50 Amount cefTRIAXone 1 gm In 50 Sodium Chloride 0.9% 50 ml @ 100 mls/hr IVPB Q24HR [facility] Rx#:[id number] Oral 480 180 Output: Urine 200 425 250 Uretheral (Hartmna) 250 250 Other: Voiding Method Bedside Commode Indwelling Catheter - Exam Patient is sitting up in the bed comfortably, no acute distress, awake alert and oriented.. HEENT: Normocephalic. Neck is supple. Pupils reactive. Nostrils clear. Oral cavity is moist. Ears reveal no drainage. Neck reveals no JVD, carotid bruits, or thyromegaly. CHEST EXAMINATION: Trachea is central. Symmetrical expansion. Bibasilar diminished air entry and mild expiratory wheezing present. Improved from CARDIAC: Normal S1, S2 with no gallops. No murmurs ABDOMEN: Soft. Bowel sounds normal. No organomegaly. No abdominal bruits. Extremities: reveal no edema. No clubbing or cyanosis Neurologically awake, alert, oriented x3 with well-coordinated movements. No focal deficits noted Skin: No rash or skin lesions. Psychiatric: Cooperative. Non-suicidal. Musculoskeletal: No joint swelling or deformity. Normal range of motion. - Labs CBC & Chem 7: 11/09/19 06:02 11/09/19 06:02 Labs: Abnormal Lab Results - Last 24 Hours (Table) 11/09/19 11/09/19 11/09/19 Range/Units 11:40 16:46 20:24 POC Glucose (mg/dL) 131 H 129 H 147 H (75-99) mg/dL 11/10/19 Range/Units 06:31 POC Glucose (mg/dL) 127 H (75-99) mg/dL Assessment and Plan Assessment: Acute non-ST elevated TN status post cardiac catheterization and stent placement to mid LAD Acute COPD exacerbation Suspected COVID 19 viral infection. Test was negative. Covid 19 ruled out Previous history of smoking Acute hypoxic respiratory failure requiring BiPAP. Currently on oxygen with nasal cannula. Hypertension, patient remains on Cozaar and Lopressor and will continue at this time Anxiety/depression History of breast cancer status post bilateral mastectomy. DVT prophylaxis with heparin subcu Plan: Patient will be continued on telemetry monitoring. Continue with dual antiplatelet therapy, statins and beta blockers. Continue with IV steroids and breathing treatments and added antibiotics in the form of azithromycin. Patient will transition to oral steroids once discharged. Patient continues to have an indwelling Hartman catheter which will be discontinued and monitor closely for r etention as last night attempt she was unable to void and Hartman catheter was reinitiated. Flomax started. Cardiology following recommending outpatient follow-up with Dr. Alex in the office. Pulmonary following. Further recommendations based on the clinical course. Possible discharge in 24-48 ho urs.
[2019-11-10 16:40] LABS: Glucose,Whole Blood 148 mg/dL (75-99)
[2019-11-10 19:48] LABS: Glucose,Whole Blood 135 mg/dL (75-99)
[2019-11-10] MEDS: ATORVASTATIN 80 MG TAB PO SCH (20:28)
[2019-11-10] MEDS: AZITHROMYCIN 500 MG TAB PO SCH (20:28)
--- NOTE | 2019-11-10 22:37 | P.PN ---
Subjective Progress Note Date: 11/09/19 Principal diagnosis: Acute non-ST elevated MS status post and placement Acute COPD exacerbation Patient is 64-year-old female with a known history of COPD was initially transferred from [facility] to [facility] due to worsening shortness of breath /dyspnea. Patient was in the MICU due to respiratory distress and requiring 4 L of oxygen where nasal cannula. Chest x- ray done at [facility] showed minimal groundglass opacities. Repeat chest x-ray at [facility] showed COPD. Patient was tested negative for COVID 19 on 11/01/2019. Patient was treated with antibiotics in the form of azithromycin and ceftriaxone as well as IV steroids for acute COPD exacerbation. Patient was also found to have elevated troponin's and EKG suggestive of ischemic changes. 2-D echo Cardizem showed ejection fraction 45% with septal, apical hypokinesis. Patient underwent cardiac catheterization showed severe disease in the mid LAD with long tubular lesion. Patient was transferred to [facility] where she underwent PCI and successful stenting of mid LAD. Patient is currently lying in the bed comfortably. No complaints of chest pain. Still having shortness of breath. No fever no chills. Patient is being continued on IV steroids, breathing treatments and antibiotics. Continued with dual antiplatelet therapy and statins and metoprolol. 11/09/2019 Patient is currently sitting on the bed appears to be in mild distress. Patient was placed on BiPAP machine. No complaints of chest pain. Patient has been afebrile. Repeat chest x-ray showed extensive emphysematous changes. No focal consolidation noted. 2-D echocardiogram is pending. Cardiology and pulmonary is following. No nausea vomiting or abdominal pain or diarrhea. Blood pressure is controlled. Current medications reviewed. Objective - Vital Signs Vital signs: Vital Signs Temp 98.4 F 11/09/19 19:50 Pulse 105 H 11/09/19 19:50 Resp 22 11/09/19 19:51 BP 147/95 11/09/19 19:50 Pulse Ox 92 L 11/09/19 19:50 Intake & Output 11/09/19 11/09/19 11/10/19 06:59 18:59 06:59 Intake Total 360 530 120 Output Total 820 200 Balance -460 330 120 Weight 44.5 kg Intake: Intake, IV Titration 50 Amount cefTRIAXone 1 gm In 50 Sodium Chloride 0.9% 50 ml @ 100 mls/hr IVPB Q24HR [facility] Rx#:[id number] Oral 360 480 120 Output: Urine 400 200 Post Void Residual 420 Other: Voiding Method Bedside Commode Bedside Commode Indwelling Catheter # Voids 1 # Bowel Movements 1 - Exam PHYSICAL EXAMINATION: Patient is lying in the bed comfortably, no acute distress, awake alert and oriented.. HEENT: Normocephalic. Neck is supple. Pupils reactive. Nostrils clear. Oral cavity is moist. Ears reveal no drainage. Neck reveals no JVD, carotid bruits, or thyromegaly. CHEST EXAMINATION: Trachea is central. Symmetrical expansion. Bibasilar diminished air entry and expiratory wheezing present. CARDIAC: Normal S1, S2 with no gallops. No murmurs ABDOMEN: Soft. Bowel sounds normal. No organomegaly. No abdominal bruits. Extremities: reveal no edema. No clubbing or cyanosis Neurologically awake, alert, oriented x3 with well-coordinated movements. No focal deficits noted Skin: No rash or skin lesions. Psychiatric: Coperative. Nonsuicidal. anxious. Musculoskeletal: No joint swelling or deformity. Normal range of motion. - Labs CBC & Chem 7: 11/09/19 06:02 11/09/19 06:02 Labs: Abnormal Lab Results - Last 24 Hours (Table) 11/09/19 11/09/19 11/09/19 Range/Units 06:02 06:02 06:13 WBC 15.8 H (3.8-10.6) k/uL MCV 100.9 H (80.0-100.0) fL Neutrophils # 14.0 H (1.3-7.7) k/uL Lymphocytes # 0.9 L (1.0-4.8) k/uL Sodium 135 L (137-145) mmol/L BUN 31 H (7-17) mg/dL Glucose 141 H (74-99) mg/dL POC Glucose (mg/dL) 167 H (75-99) mg/dL 11/09/19 11/09/19 11/09/19 Range/Units 11:40 16:46 20:24 WBC (3.8-10.6) k/uL MCV (80.0-100.0) fL Neutrophils # (1.3-7.7) k/uL Lymphocytes # (1.0-4.8) k/uL Sodium (137-145) mmol/L BUN (7-17) mg/dL Glucose (74-99) mg/dL POC Glucose (mg/dL) 131 H 129 H 147 H (75-99) mg/dL Assessment and Plan Assessment: Acute non-ST elevated MS status post cardiac catheterization and stent placement to mid LAD Acute COPD exacerbation. Chest x-ray showed extensive emphysematous changes. Suspected COVID 19 viral infection. Test was negative. Previous history of smoking Acute hypoxic respiratory failure requiring BiPAP.. Uncontrolled Hypertension Anxiety/depression History of breast cancer status post bilateral ostectomy. DVT prophylaxis with heparin subcu Plan: Patient will be continued on telemetry monitoring. Continue with dual antiplatelet therapy, statins and beta blockers. Continue with IV steroids and breathing treatments and added antibiotics in the form of azithromycin. Cardio logy and pulmonary is on board. Further recommendations based on the clinical course. Time with Patient: Greater than 30
[2019-11-11] MEDS: methylPREDNISolone SOD SUCCI 125 MG/2 ML VIAL IV SCH ×3 (00:06→12:18)
[2019-11-11] MEDS: HEPARIN SODIUM,PORCINE 5,000 UNIT/ML 1 ML VIAL SQ SCH ×2 (00:06→08:48)
[2019-11-11] MEDS: ALBUTEROL HFA INHALER INHALATION SCH ×4 (00:58→11:32)
[2019-11-11 05:44] LABS: Glucose,Whole Blood 120 mg/dL (75-99)
[2019-11-11] MEDS: PANTOPRAZOLE 40 MG TABLET PO SCH (06:11)
[2019-11-11] MEDS: INSULIN ASPART (NovoLOG) 100 UNIT/ML VIAL SQ SCH ×2 (06:13→12:18)
[2019-11-11] MEDS: ALPRAZolam 0.25 MG TAB PO PRN (06:17)
[2019-11-11] MEDS: SYMBICORT 160-4.5 MCG INHALER INHALATION SCH (07:42)
[2019-11-11] MEDS: TIOTROPIUM 18 MCG/PUFF INHALER INHALATION SCH (07:44)
[2019-11-11] MEDS: NICOTINE 21MG/24HR PATCH TRANSDERM SCH (08:47)
[2019-11-11] MEDS: PRASUGREL 10 MG TAB PO SCH (08:48)
[2019-11-11] MEDS: METOPROLOL TARTRATE 50 MG TAB PO SCH (08:48)
[2019-11-11] MEDS: TAMSULOSIN 0.4 MG CAP.ER.24H PO SCH (08:48)
[2019-11-11] MEDS: LOSARTAN 50 MG TAB PO SCH (08:48)
[2019-11-11] MEDS: ASPIRIN 81 MG PO SCH (08:49)
--- NOTE | 2019-11-11 09:51 | P.PN ---
Subjective Progress Note Date: 11/11/19 This is a dictation for the date of service 11/08/2019 This is a 64-year-old female with history of COPD who initially was transferred from [facility] to [facility] because of symptoms of progressively worsening shortness of breath, she ruled in for non-Q-wave myocardial infarction, underwent a cardiac catheterization which revealed severe disease in the mid LAD and hence the patient was transferred here where she underwent angioplasty and stenting of that vessel. Patient was seen and examined this morning, hemodynamically stable but quite short of breath and quite wheezy. Blood pressure 160/80 with a heart rate of 118. 91% on 3 L of oxygen. White blood cell count 10.4, hemoglobin 14.9, platelet count 322. Sodium 138, potassium 4.3, BUN 26, creatinine 0.4. 11/09/19 Patient seen and examined this morning, breathing overall is significantly improved and she is wheezing much last. She denies any chest discomfort and hemodynamically he is stable. Echo remains pending. 11/11/2019 Patient seen and examined this morning, overall doing well. Echocardiogram with Doppler study revealed an ejection fraction of 50-55%. Hemodynamically stable. Objective - Vital Signs Vital signs: Vital Signs Temp 97.9 F 11/11/19 04:00 Pulse 80 11/11/19 04:00 Resp 26 H 11/11/19 04:00 BP 129/73 11/11/19 04:00 Pulse Ox 94 L 11/11/19 04:00 Intake & Output 11/10/19 11/11/19 11/11/19 18:59 06:59 18:59 Intake Total 480 360 Output Total 500 1050 300 Balance -20 -690 -300 Weight 39 kg Intake: Oral 480 360 Output: Urine 500 1050 300 Uretheral (Hartman) 500 650 Other: Voiding Method Bedpan - Exam PHYSICAL EXAMINATION: GENERAL: 64-year-old female in no acute distress at the time of my examination HEENT: Head is atraumatic, normocephalic. Pupils equal, round. Sclera anicteric. Conjunctiva are clear. Mucous membranes of the mouth are moist. Neck is supple. There is no elevated jugular venous pressure. No carotid bruit is heard. HEART EXAMINATION: Heart S1, S2 normal. No murmur or gallop heard. CHEST EXAMINATION: Lungs improvement in air exchange with less wheezing ABDOMEN: Soft, nontender. Bowel sounds are heard. No organomegaly noted. EXTREMITIES: 2+ peripheral pulses with no evidence of peripheral edema and no calf tenderness noted. Right groin is soft, no evidence of any hematoma. NEUROLOGIC patient is awake, alert and oriented X3 . - Labs CBC & Chem 7: 11/09/19 06:02 11/09/19 06:02 Labs: Abnormal Lab Results - Last 24 Hours (Table) 11/10/19 11/10/19 11/10/19 Range/Units 11:47 16:39 19:46 POC Glucose (mg/dL) 114 H 148 H 135 H (75-99) mg/dL 11/11/19 Range/Units 05:42 POC Glucose (mg/dL) 120 H (75-99) mg/dL Assessment and Plan Plan: Assessment and plan #1 non-ST elevation myocardial infarction, status post angioplasty and stenting of the LAD #2 moderate to severe COPD #3 prior history of smoking #4 acute respiratory failure requiring BiPAP #5 uncontrolled hypertension #6 history of breast cancer #7 hyperlipidemia Plan From cardiology's perspective, the patient [facility] be [facility] We will make her a follow-up appointment in the office with Dr. Resendez post discharge. DNP note has been reviewed, I agree with a documented findings and plan of care. Patient was seen and examined.
[2019-11-11 11:09] VITALS: BMI 14.3
[2019-11-11 11:36] LABS: Glucose,Whole Blood 125 mg/dL (75-99)
[2019-11-11 12:57] VITALS: BP 117/83; PULSE 72; RESP 24; TEMP 98
--- NOTE | 2019-11-11 13:13 | P.PN ---
Subjective Progress Note Date: 11/11/19 Principal diagnosis: Acute non-ST segment elevation myocardial infarction status post stent placement to the mid LAD Patient is 64-year-old female with a known history of COPD was initially transferred from [facility] to [facility] due to worsening shortness of breath /dyspnea. Patient was in the MICU due to respiratory distress and requiring 4 L of oxygen where nasal cannula. Chest x- ray done at [facility] showed minimal groundglass opacities. Repeat chest x-ray at [facility] showed COPD. Patient was tested negative for COVID 19 on 11/01/2019. Patient was treated with antibiotics in the form of azithromycin and ceftriaxone as well as IV steroids for acute COPD exacerbation. Patient was also found to have elevated troponin's and EKG suggestive of ischemic changes. 2-D echo Cardizem showed ejection fraction 45% with septal, apical hypokinesis. Patient underwent cardiac catheterization showed severe disease in the mid LAD with long tubular lesion. Patient was transferred to [facility] where she underwent PCI and successful stenting of mid LAD. Patient is currently lying in the bed comfortably. No complaints of chest pain. Still having shortness of breath. No fever no chills. Patient is being continued on IV steroids, breathing treatments and antibiotics. Continued with dual antiplatelet therapy and statins and metoprolol. 11/10/2019 Patient is seen and evaluated and follow-up in currently on 3 L of oxygen via nasal cannula. She states her breathing has improved and normally wears 3 L at home. Pulmonary following. Patient was wearing the BiPAP last night. Early no reports of chest pain, worsening shortness of breath, or palpitations. Patient is afebrile. No reports of nausea or vomiting and patient is tolerating diet. Attempts to remove the Hartman catheter done yesterday and patient was retaining and the Hartman catheter was replaced. Patient will be initiated on Flomax and nursing staff instructed to remove the Hartman and monitor for retention. If this continues urology consult will be placed. Patient continues on oral Zithromax along with IV ceftriaxone and will continue at this time. Patient remains on IV steroids and wheezing has slightly improved. Cardiology recommending outpatient follow-up once discharged. The patient is seen today 11/11/2019 in follow-up on selective care unit. She is currently sitting up in bed. Awake and alert in no acute distress. States her breathing is improved. No chest pain. Maintaining O2 saturations in the 90s on 3 L/m per nasal cannula. She's afebrile. Hemodynamically stable. Blood glucose 125. She is continued on Symbicort, Spiriva, albuterol, IV Solu-Medrol. NicoDerm patch is in place. Objective - Vital Signs Vital signs: Vital Signs Temp 98 F 11/11/19 12:00 Pulse 72 11/11/19 12:00 Resp 24 11/11/19 12:57 BP 117/83 11/11/19 12:00 Pulse Ox 87 L 11/11/19 12:57 Intake & Output 11/10/19 11/11/19 11/11/19 18:59 06:59 18:59 Intake Total 480 360 Output Total 500 1050 300 Balance -20 -690 -300 Weight 39 kg 39 kg Intake: Oral 480 360 Output: Urine 500 1050 300 Uretheral (Hartman) 500 650 Other: Voiding Method Bedpan - Exam GENERAL EXAM: Alert, active, pleasant 64 year female patient, comfortable in no apparent distress. On 3 L nasal cannula HEAD: Normocephalic. EYES: Normal reaction of pupils, equal size. NOSE: Clear with pink turbinates. THROAT: No erythema or exudates. NECK: No masses, no JVD. CHEST: No chest wall deformity. LUNGS: Equal air entry with no crackles, wheeze, rhonchi or dullness. Diminished. CVS: S1 and S2 normal with no audible murmur, regular rhythm. ABDOMEN: No hepatosplenomegaly, normal bowel sounds, no guarding or rigidity. SPINE: No scoliosis or deformity SKIN: No rashes CENTRAL NERVOUS SYSTEM: No focal deficits, tone is normal in all 4 extremities. EXTREMITIES: There is no peripheral edema. No clubbing, no cyanosis. Peripheral pulses are intact. - Labs CBC & Chem 7: 11/09/19 06:02 11/09/19 06:02 Labs: Abnormal Lab Results - Last 24 Hours (Table) 11/10/19 11/10/19 11/11/19 Range/Units 16:39 19:46 05:42 POC Glucose (mg/dL) 148 H 135 H 120 H (75-99) mg/dL 11/11/19 Range/Units 11:34 POC Glucose (mg/dL) 125 H (75-99) mg/dL Assessment and Plan Assessment: 1 Acute non-ST segment elevation myocardial infarction, status post placement to the mid LAD 2 Acute exacerbation of chronic obstructive pulmonary disease 3 Acute hypoxic/hypercapnic respiratory failure requiring BiPAP support. Currently on oxygen at 3 L/m per nasal cannula. 4 Chronic tobacco dependence 5 Hypertension 6 Anxiety/depression 7 History of breast cancer status post bilateral mastectomy 8 Hyperlipidemia Plan: The patient was seen and evaluated by Dr. Adamson She is stable from the pulmonary standpoint. Convert to oral prednisone taper starting at 40 mg daily for 4 days Continue her home pulmonary medications including Advair, albuterol She does have home oxygen in place She is again educated regarding the importance of complete smoking cessation Follow-up in our [place] clinic in 4 weeks I, the cosigning physician, performed a history & physical examination of the patient. Lungs sounds are clear, diminished. Maintaining good O2 saturations in the 90s on 3 L/m per nasal cannula. I discussed the assessment and plan of care with my nurse practitioner, Mandie Caba. I attest to the above note as dictated by her.
--- NOTE | 2019-11-11 15:53 | P.DS ---
Providers Date of admission: 11/07/19 10:52 Expected date of discharge: 11/11/19 Attending physician: Sarah Hart Consults: 11/07/19 11:35 Consult Physician Routine Consulting Provider: [facility] Consult Reason/Comments: Post Interventional patient Do you want consulting provider notified?: Already Contacted 11/08/19 22:19 Consult Physician Routine Consulting Provider: Gena Adamson Consult Reason/Comments: KASSIE Do you want consulting provider notified?: Yes, Notify in am Primary care physician: Dameron Hospital Course: Final diagnosis Acute non-ST elevated MO status post cardiac catheterization and stent placement to mid LAD Acute COPD exacerbation Suspected COVID 19 viral infection. Test was negative. Covid 19 ruled out Previous history of smoking Acute hypoxic respiratory failure requiring BiPAP. Currently on oxygen with nasal cannula. Hypertension Anxiety/depression History of breast cancer status post bilateral mastectomy. DVT prophylaxis Discharge disposition Patient is being discharged in a stable condition with guarded prognosis to home and will continue with home care in the outpatient setting. Patient will fol low-up with Keli Robertson upon discharge. Patient will also need to follow-up with cardiology along with pulmonary in the outpatient setting. Patient will continue on a prednisone taper as well. Time taken is 35 minutes. History of present illness This is a 64-year-old female who was recently admitted with worsening shortness of breath and dyspnea and was being closely monitored. Patient was initially at [facility] and then [facility] in the MICU for respiratory distress requiring oxygen with BiPAP. Patient was then transferred to [facility] although transferred here to [facility] for cardiac intervention and cardiac catheterization with stent placement. Patient had a stent placed to the mid LAD and was being closely monitored by cardiology. Patient normally only wears oxygen at night with a concentrator although with oxygen evaluation testing patient saturation dropped to 87% on room air and will be requiring continuous home oxygen in the outpatient setting. Patient was quite weak and requiring assistance with position changes and getting up to the bedside commode. Patient will need a walker along with a commode upon discharge she continues to be weak and unable to make it all the way to the bathroom. Patient will continue with home care in the outpatient setting. Daughter is agreeable to this care plan. Patient will need close follow-up with cardiology along with pulmonary in the outpatient setting. Patient was on IV steroids along with IV antibiotics and has completed a course of IV antibiotics and will continue on a prednisone taper in the outpatient setting. Currently no reports of chest pain, worsening shortness of breath, or palpitations. Patient is afebrile. No reports of nausea or vomiting and patient is tolerating diet. On exam vital signs are stable. Temp is 98F, pulse is 72, respirations are 20, blood pressure is 117/83, oxygen saturation is 94% on 3 L via nasal cannula. Cardio S1, S2 are present. Respiratory system shows diminished breath sounds bilaterally with some mild expiratory wheezing noted. Abdomen is soft and nontender. System shows mild diffuse weakness with no focal deficits. Please refer to medication reconciliation sheet for a list of medications. Patient Condition at Discharge: Stable Plan - Discharge Summary Discharge Rx Participant: Yes New Discharge Prescriptions: New RX: Losartan [Cozaar] 50 mg PO DAILY 30 Days #30 tab RX: Prasugrel [Effient] 10 mg PO DAILY 30 Days #30 tab RX: Atorvastatin [Lipitor] 80 mg PO HS 30 Days #30 tab RX: Metoprolol Tartrate [Lopressor] 50 mg PO BID 30 Days #60 tab RX: Nitroglycerin Sl Tabs [Nitrostat] 0.4 mg SUBLINGUAL Q5M PRN #20 tab PRN Reason: Chest Pain RX: predniSONE 10 mg PO DIRECTED #30 tab Continue RX: Albuterol Sulfate [Proair Hfa] 2 puff INHALATION RT-Q6H PRN PRN Reason: Shortness Of Breath RX: hydrOXYzine HCL 10 mg PO BID RX: LORazepam [Ativan] 0.5 mg PO TID PRN PRN Reason: Anxiety RX: Ipratropium-Albuterol Nebulize [Duoneb 0.5 mg-3 mg/3 ml Soln] 3 ml INHALATION RT-QID PRN PRN Reason: Shortness Of Breath RX: Fluticasone Propion/Salmeterol [Fluticasone-Salmeterol 500-50] 1 puff INHALATION RT-DAILY RX: busPIRone HCL 10 mg PO BID RX: Fluticasone/Salmeterol [Advair 500-50 Diskus] 1 puff INHALATION RT-BID RX: Aspirin EC [Ecotrin Low Dose] 81 mg PO DAILY Discharge Medication List RX: Albuterol Sulfate [Proair Hfa] 2 puff INHALATION RT-Q6H PRN 11/07/19 [History] RX: Aspirin EC [Ecotrin Low Dose] 81 mg PO DAILY 11/07/19 [History] RX: Fluticasone Propion/Salmeterol [Fluticasone-Salmeterol 500-50] 1 puff INHALATION RT-DAILY 11/07/19 [History] RX: Fluticasone/Salmeterol [Advair 500-50 Diskus] 1 puff INHALATION RT-BID 11/07/19 [History] RX: Ipratropium-Albuterol Nebulize [Duoneb 0.5 mg-3 mg/3 ml Soln] 3 ml INHALATION RT-QID PRN 11/07/19 [History] RX: LORazepam [Ativan] 0.5 mg PO TID PRN 11/07/19 [History] RX: busPIRone HCL 10 mg PO BID 11/07/19 [History] RX: hydrOXYzine HCL 10 mg PO BID 11/07/19 [History] RX: Atorvastatin [Lipitor] 80 mg PO HS 30 Days #30 tab 11/11/19 [Rx] RX: Losartan [Cozaar] 50 mg PO DAILY 30 Days #30 tab 11/11/19 [Rx] RX: Metoprolol Tartrate [Lopressor] 50 mg PO BID 30 Days #60 tab 11/11/19 [Rx] RX: Nitroglycerin Sl Tabs [Nitrostat] 0.4 mg SUBLINGUAL Q5M PRN #20 tab 11/11/19 [Rx] RX: Prasugrel [Effient] 10 mg PO DAILY 30 Days #30 tab 11/11/19 [Rx] RX: predniSONE 10 mg PO DIRECTED #30 tab 11/11/19 [Rx] Follow up Appointment(s)/Referral(s): Daniel Alex MD [STAFF PHYSICIAN] - 11/17/19 11:00 am Keli Robertson PAC [REFERRING] - 11/14/19 1:30 pm [facility], [NON-STAFF] - Gena Adamson MD [STAFF PHYSICIAN] - 12/02/19 2:15 pm Patient Instructions/Handouts: Heart Healthy Diet (DC), Heart Catheterization (DC), Angio-Seal (DC) Activity/Diet/Wound Care/Special Instructions: Patient requires walker at discharge secondary to unsteady gait/copd Patient requires portable oxygen secondary to copd Activity Limited until follow-up Continue current diet Continue to avoid tobacco use Continue prednisone taper Follow-up with primary care provider upon discharge Follow-up with cardiology in 1-2 weeks Follow-up with pulmonary in 1-2 weeks Discharge Disposition: HOME SELF-CARE
== END 2019-11-11 15:09 | disposition home health service (06) | DRG 246 ==
LOC: 3SCARD 10:52
PROVIDERS: ADMIT Internal Medicine; ATTEND Internal Medicine
PROC: 027034Z Dilation of Coronary Artery, One Artery with Drug-eluting Intraluminal Device, Percutaneous Approach (ICD-10-PCS; principal; 2019-11-07 10:52)
PROC: 5A09457 Assistance with Respiratory Ventilation, 24-96 Consecutive Hours, Continuous Positive Airway Pressure (ICD-10-PCS; principal; 2019-11-07 10:52)
DX: I21.4 Non-ST elevation (NSTEMI) myocardial infarction (principal); J96.01 Acute respiratory failure with hypoxia; J96.02 Acute respiratory failure with hypercapnia; I16.1 Hypertensive emergency; I25.10 Atherosclerotic heart disease of native coronary artery without angina pectoris; Z20.828 Contact with and (suspected) exposure to other viral communicable diseases; J43.9 Emphysema, unspecified; E78.5 Hyperlipidemia, unspecified; I10 Essential (primary) hypertension; F41.8 Other specified anxiety disorders; Z79.82 Long term (current) use of aspirin; Z79.51 Long term (current) use of inhaled steroids; Z79.899 Other long term (current) drug therapy; Z99.81 Dependence on supplemental oxygen; Z87.891 Personal history of nicotine dependence; Z71.6 Tobacco abuse counseling; Z90.13 Acquired absence of bilateral breasts and nipples; Z85.3 Personal history of malignant neoplasm of breast; Z81.8 Family history of other mental and behavioral disorders; Z80.9 Family history of malignant neoplasm, unspecified
CPT/HCPCS: 71045; 80048; 85025; 93306; 94640; 94660; 94760